=== PATIENT | female | born 1950 | race African-American/Black ===

== ENCOUNTER 2021-09-20 15:48 | Inpatient (IN) | payer OTHER ==
[~2021-09-20] VITALS: Ht 160 cm; Wt 136.1 kg
[2021-09-20] MEDS ORDERED: ASPIRIN 325MG EC TABLET PO ONE (16:30)
[2021-09-20 16:43] LABS: BASOPHILS % 0.8 % (0.0-2.0); HEMATOCRIT. 37.3 % (36.0-48.0); HEMOGLOBIN. 12.1 g/dL (12.0-16.0); LYMPHOCYTES % 37.4 % (20.0-50.0); MEAN CORPUSCULAR HEMOGLOBIN 28.7 pg (28.0-32.0); MEAN CORPUSCULAR VOLUME 88.4 fL (81.0-99.0); MEAN PLATELET VOLUME 7.9 fl (7.4-10.4); MONOCYTES % 7.7 % (2.0-8.0); NEUTROPHILS % 52.1 % (40.0-76.0); PLATELET 387 x1000/uL (130-400); RED BLOOD CELL COUNT 4.21 mill/uL (4.2-5.4); RED CELL DISTRIBUTION WIDTH 19.1 % (11.6-14.6)
[2021-09-20 16:52] LABS: CHLORIDE 107 mEq/L (98-107)
[2021-09-20 17:03] LABS: ETHANOL BLOOD < 10 mg/dL
[2021-09-20] MEDS ORDERED: ASPIRIN 325MG EC TABLET PO NR (17:15)
[2021-09-20] MEDS ORDERED: IOHEXOL-350 100 ML BOTTLE ONE (17:35)
[2021-09-20 18:07] LABS: CLARITY URINE CLEAR (CLEAR); COLOR URINE YELLOW (YELLOW); KETONES URINE TRACE (NEGATIVE); LEUKOCYTE ESTERASE URINE NEGATIVE (NEGATIVE); NITRITE URINE NEGATIVE (NEGATIVE); OCCULT BLOOD URINE 1+ (NEGATIVE); PROTEIN URINE NEGATIVE (NEGATIVE); SPECIFIC GRAVITY URINE 1.034 (1.005-1.030)
[2021-09-20 18:28] LABS: *AMPHETAMINES SCREEN URINE NEGATIVE (NEGATIVE); *BARBITURATES SCREEN URINE NEGATIVE (NEGATIVE); *BENZODIAZEPINES SCREEN URINE NEGATIVE (NEGATIVE); *COCAINE SCREEN URINE NEGATIVE (NEGATIVE); CANNABINOID URINE SCREEN NEGATIVE (NEGATIVE); METHADONE URINE SCREEN NEGATIVE (NEGATIVE); OPIATES URINE SCREEN NEGATIVE (NEGATIVE); PHENCYCLIDINE URINE SCREEN NEGATIVE (NEGATIVE)
[2021-09-20] MEDS ORDERED: LEVETIRACETAM 1000MG PREMIX 100 ML IV ONE (18:30)
[2021-09-20] MEDS ORDERED: MIDAZOLAM HCL 2 MG/2 ML VIAL IV ONE ×2 (18:30)
[2021-09-20] MEDS ORDERED: IPRATROPIUM/ALBUTEROL 0.5-3(2.5)MG/3ML NEB HHN PRN (22:45)
[2021-09-20] MEDS ORDERED: ONDANSETRON HCL 4MG/2ML INJ IV PRN (22:45)
[2021-09-20] MEDS ORDERED: ACETAMINOPHEN 650MG SUPP PR PRN ×2 (22:45)
[2021-09-20] MEDS ORDERED: LEVETIRACETAM 500 MG in SODIUM CHLORIDE 0.9% 100 ML IV SCH (22:45)
[2021-09-20] MEDS ORDERED: DEXT 5%/0.45% NACL KCL 40MEQ/L 1,000 ML IV SCH (23:00)
[2021-09-21] VITALS (41 sets, daily range): BP systolic 102–179; BP diastolic 51–108
[2021-09-21] MEDS: LEVETIRACETAM 500MG PREMIX 100 ML IV SCH ×3 (01:41→22:25)
[2021-09-21] MEDS: HYDRALAZINE 20MG/ML VIAL IV PRN (06:15)
[2021-09-21] MEDS ORDERED: ETOMIDATE 2MG/ML 10ML VIAL IV ONE (08:29)
[2021-09-21] MEDS ORDERED: SODIUM CHLORIDE 0.9% 10ML VIAL ONE (08:29)
[2021-09-21] MEDS ORDERED: VECURONIUM BROMIDE 10 MG/VIAL IV ONE (08:29)
[2021-09-21] MEDS: PANTOPRAZOLE SODIUM 40 MG/VIAL IV SCH (08:41)
[2021-09-21] MEDS ORDERED: LEVETIRACETAM 500MG PREMIX 100 ML IV SCH (09:00)
[2021-09-21 12:56] LABS: BG CARBOXYHEMOGLOBIN 0.7 % (0.5-1.5); BG DEOXYHEMOGLOBIN 3.9 % (0.0-5.0); BG FRACTION INSPIRED OXYGEN 100; BG HCO3 ACT 29.6 mmol/L (22.0-26.0); BG METHEMOGLOBIN 0.5 % (0.0-1.5); BG OXYGEN SATURATION 96.1 % (92.0-98.5); BG OXYHEMOGLOBIN 94.9 % (94.0-97.0); BG PCO2 53.8 mmHg (35.0-45.0); BG PH 7.359 (7.350-7.450); BG PO2 84.3 mmHg (75.0-100.0); BG SAMPLE SITE RIGHT RADIAL; BG TOTAL HEMOGLOBIN 13.3 g/dL (12.0-18.0); BG VENT MODE MASK - NRB
[2021-09-21] MEDS: HYDRALAZINE HCL 100MG TABLET PO SCH ×2 (13:33→21:07)
[2021-09-21] MEDS ORDERED: PROPOFOL 10MG/ML 100ML 100 ML IV PRN (13:45)
[2021-09-21] MEDS: DEXT 5%/0.45% NACL KCL 40MEQ/L 1,000 ML IV SCH (15:39)
[2021-09-21 15:45] LABS: BG BASE EXCESS 3.5 mmol/L (-2.0-2.0); BG DEOXYHEMOGLOBIN 1.2 % (0.0-5.0); BG FRACTION INSPIRED OXYGEN 100; BG HCO3 ACT 29.7 mmol/L (22.0-26.0); BG METHEMOGLOBIN 0.5 % (0.0-1.5); BG OXYGEN SATURATION 98.8 % (92.0-98.5); BG OXYHEMOGLOBIN 98.3 % (94.0-97.0); BG PH 7.375 (7.350-7.450); BG PO2 137.4 mmHg (75.0-100.0); BG SAMPLE SITE RIGHT RADIAL; BG TOTAL HEMOGLOBIN 13.3 g/dL (12.0-18.0); BG VENT MODE VENT - AC
[2021-09-21] MEDS: IPRATROPIUM/ALBUTEROL 0.5-3(2.5)MG/3ML NEB HHN SCH ×2 (16:11→20:49)
[2021-09-21] MEDS: ACETYLCYSTEINE 100MG/ML 10% VIAL 4ML INH SCH (16:11)
[2021-09-22] VITALS (95 sets, daily range): BP systolic 118–188; BP diastolic 49–107
[2021-09-22] MEDS: HYDRALAZINE 20MG/ML VIAL IV PRN (00:57)
[2021-09-22] MEDS: FENTANYL 2500MCG/250ML PMX 250 ML IV PRN ×2 (02:11→23:22)
[2021-09-22] MEDS: ACETYLCYSTEINE 100MG/ML 10% VIAL 4ML INH SCH ×3 (02:25→14:46)
[2021-09-22] MEDS: IPRATROPIUM/ALBUTEROL 0.5-3(2.5)MG/3ML NEB HHN SCH ×4 (02:38→20:35)
[2021-09-22] MEDS: DEXT 5%/0.45% NACL KCL 40MEQ/L 1,000 ML IV SCH ×2 (05:02→17:45)
[2021-09-22] MEDS: HYDRALAZINE HCL 100MG TABLET PO SCH ×3 (05:02→22:12)
[2021-09-22 06:02] LABS: CHLORIDE 106 mEq/L (98-107)
[2021-09-22 06:12] LABS: HEMATOCRIT. 35.5 % (36.0-48.0); HEMOGLOBIN. 11.8 g/dL (12.0-16.0); MEAN CORPUSCULAR HEMOGLOBIN 29.1 pg (28.0-32.0); MEAN CORPUSCULAR VOLUME 87.4 fL (81.0-99.0); RED BLOOD CELL COUNT 4.07 mill/uL (4.2-5.4); RED CELL DISTRIBUTION WIDTH 19.4 % (11.6-14.6)
[2021-09-22] MEDS ORDERED: LIDOCAINE HCL/PF 1% 2ML VIAL ONE (07:55)
[2021-09-22 08:34] LABS: BG BASE EXCESS 5.1 mmol/L (-2.0-2.0); BG CARBOXYHEMOGLOBIN 0.3 % (0.5-1.5); BG DEOXYHEMOGLOBIN 0.4 % (0.0-5.0); BG HCO3 ACT 30.9 mmol/L (22.0-26.0); BG METHEMOGLOBIN 0.7 % (0.0-1.5); BG OXYGEN SATURATION 99.6 % (92.0-98.5); BG OXYHEMOGLOBIN 98.6 % (94.0-97.0); BG PO2 378.8 mmHg (75.0-100.0); BG SAMPLE SITE RIGHT RADIAL; BG TOTAL HEMOGLOBIN 12.1 g/dL (12.0-18.0); BG VENT MODE VENT - AC
[2021-09-22] MEDS: LEVETIRACETAM 500MG PREMIX 100 ML IV SCH ×2 (08:52→20:31)
[2021-09-22] MEDS: PANTOPRAZOLE SODIUM 40 MG/VIAL IV SCH (08:52)
[2021-09-22] MEDS ORDERED: LIDOCAINE HCL 1% 10 MG/ML 10ML VIAL ONE (09:29)
[2021-09-22 11:34] LABS: PLATELET 424 x1000/uL (130-400)
[2021-09-22 11:41] LABS: PLATELET ESTIMATE SLIGHTLY INCREASED
[2021-09-22 18:37] LABS: INR 1.1; PROTHROMBIN TIME 11.4 sec (9.6-11.0)
[2021-09-22] MEDS: LEVOFLOXACIN 500MG PREMIX 100 ML IV SCH (20:30)
[2021-09-22] MEDS: METRONIDAZOLE 500 MG PREMIX 100 ML IV SCH (20:31)
[2021-09-23] VITALS (93 sets, daily range): BP systolic 101–186; BP diastolic 50–98
[2021-09-23] MEDS: IPRATROPIUM/ALBUTEROL 0.5-3(2.5)MG/3ML NEB HHN SCH ×4 (00:30→20:23)
[2021-09-23] MEDS: ACETYLCYSTEINE 100MG/ML 10% VIAL 4ML INH SCH ×3 (00:30→14:51)
[2021-09-23] MEDS: HYDRALAZINE 20MG/ML VIAL IV PRN ×2 (02:32→09:04)
[2021-09-23 04:54] LABS: BASOPHILS % 0.2 % (0.0-2.0); HEMATOCRIT. 32.2 % (36.0-48.0); HEMOGLOBIN. 10.4 g/dL (12.0-16.0); LYMPHOCYTES % 10.5 % (20.0-50.0); MEAN CORPUSCULAR HEMOGLOBIN 28.4 pg (28.0-32.0); MEAN CORPUSCULAR VOLUME 88.1 fL (81.0-99.0); MEAN PLATELET VOLUME 8.1 fl (7.4-10.4); MONOCYTES % 10.5 % (2.0-8.0); NEUTROPHILS % 78.8 % (40.0-76.0); PLATELET 384 x1000/uL (130-400); RED BLOOD CELL COUNT 3.66 mill/uL (4.2-5.4); RED CELL DISTRIBUTION WIDTH 19.6 % (11.6-14.6)
[2021-09-23] MEDS: HYDRALAZINE HCL 100MG TABLET PO SCH ×3 (05:04→22:00)
[2021-09-23] MEDS: METRONIDAZOLE 500 MG PREMIX 100 ML IV SCH ×3 (05:04→21:55)
[2021-09-23 05:08] LABS: CHLORIDE 107 mEq/L (98-107)
[2021-09-23] MEDS: DEXT 5%/0.45% NACL 1000ML 1,000 ML IV SCH ×2 (08:17→20:20)
[2021-09-23] MEDS: PANTOPRAZOLE SODIUM 40 MG/VIAL IV SCH (08:17)
[2021-09-23] MEDS: LEVETIRACETAM 500MG PREMIX 100 ML IV SCH ×2 (08:17→20:19)
[2021-09-23 08:45] LABS: BG CARBOXYHEMOGLOBIN 0.3 % (0.5-1.5); BG DEOXYHEMOGLOBIN 5.8 % (0.0-5.0); BG FRACTION INSPIRED OXYGEN 40; BG HCO3 ACT 26.2 mmol/L (22.0-26.0); BG METHEMOGLOBIN 0.3 % (0.0-1.5); BG OXYGEN SATURATION 94.2 % (92.0-98.5); BG OXYHEMOGLOBIN 93.6 % (94.0-97.0); BG PCO2 49.1 mmHg (35.0-45.0); BG PH 7.345 (7.350-7.450); BG PO2 73.7 mmHg (75.0-100.0); BG SAMPLE SITE RIGHT RADIAL; BG TOTAL HEMOGLOBIN 11.7 g/dL (12.0-18.0); BG VENT MODE VENT - AC
[2021-09-23] MEDS ORDERED: LEVETIRACETAM 500MG PREMIX 100 ML IV SCH (09:00)
[2021-09-23] MEDS: DOCUSATE SODIUM SUGAR FREE 100MG/10ML UDC NG SCH (14:12)
[2021-09-23] MEDS ORDERED: SODIUM POLYSTYRENE SULFONATE 15 G/60 ML BOT PO NR (17:15)
[2021-09-23] MEDS: LEVOFLOXACIN 500MG PREMIX 100 ML IV SCH (20:19)
[2021-09-24] VITALS (96 sets, daily range): BP systolic 94–169; BP diastolic 39–89
[2021-09-24] MEDS: IPRATROPIUM/ALBUTEROL 0.5-3(2.5)MG/3ML NEB HHN SCH ×5 (02:12→20:37)
[2021-09-24] MEDS: ACETYLCYSTEINE 100MG/ML 10% VIAL 4ML INH SCH ×3 (02:13→14:23)
[2021-09-24] MEDS: HYDRALAZINE HCL 100MG TABLET PO SCH ×3 (05:02→22:47)
[2021-09-24] MEDS: METRONIDAZOLE 500 MG PREMIX 100 ML IV SCH ×3 (05:02→22:03)
[2021-09-24 05:11] LABS: HEMATOCRIT 28.7 % (36.0-48.0); HEMOGLOBIN 9.2 g/dL (12.0-16.0); MEAN CORPUSCULAR HEMOGLOBIN 28.4 pg (28.0-32.0); PLATELET 311 x1000/uL (130-400); RED BLOOD CELL COUNT 3.26 mill/uL (4.2-5.4)
[2021-09-24 05:23] LABS: CHLORIDE 106 mEq/L (98-107)
[2021-09-24 07:55] LABS: BG BASE EXCESS -2.1 mmol/L (-2.0-2.0); BG CARBOXYHEMOGLOBIN 0.3 % (0.5-1.5); BG HCO3 ACT 22.3 mmol/L (22.0-26.0); BG METHEMOGLOBIN 0.6 % (0.0-1.5); BG OXYHEMOGLOBIN 97.1 % (94.0-97.0); BG PCO2 36.8 mmHg (35.0-45.0); BG PH 7.401 (7.350-7.450); BG PO2 116.8 mmHg (75.0-100.0); BG SAMPLE SITE RIGHT RADIAL; BG TOTAL HEMOGLOBIN 10.2 g/dL (12.0-18.0); BG VENT MODE VENT - AC
[2021-09-24] MEDS: PANTOPRAZOLE SODIUM 40 MG/VIAL IV SCH (08:16)
[2021-09-24] MEDS: LEVETIRACETAM 500MG PREMIX 100 ML IV SCH (08:17)
[2021-09-24] MEDS: DOCUSATE SODIUM SUGAR FREE 100MG/10ML UDC NG SCH (08:17)
[2021-09-24] MEDS: DEXT 5%/0.45% NACL 1000ML 1,000 ML IV SCH (08:48)
[2021-09-24] MEDS: FENTANYL 2500MCG/250ML PMX 250 ML IV PRN (08:49)
[2021-09-24] MEDS ORDERED: LEVETIRACETAM 500MG PREMIX 100 ML IV NR (15:00)
[2021-09-24] MEDS: LEVOFLOXACIN 500MG PREMIX 100 ML IV SCH (20:14)
[2021-09-24] MEDS ORDERED: LEVETIRACETAM 500MG PREMIX 100 ML IV SCH (21:00)
[2021-09-24] MEDS: LEVETIRACETAM 1000MG PREMIX 100 ML IV SCH (21:29)
[2021-09-24] MEDS ORDERED: PHENYTOIN SODIUM 1,000 MG in SODIUM CHLORIDE 0.9% 100 ML IV NR (23:00)
[2021-09-25] VITALS (95 sets, daily range): BP systolic 93–149; BP diastolic 39–69
[2021-09-25] MEDS: ACETYLCYSTEINE 100MG/ML 10% VIAL 4ML INH SCH ×3 (02:09→13:51)
[2021-09-25] MEDS: IPRATROPIUM/ALBUTEROL 0.5-3(2.5)MG/3ML NEB HHN SCH ×4 (02:09→20:17)
[2021-09-25] MEDS: FENTANYL 2500MCG/250ML PMX 250 ML IV PRN (04:13)
[2021-09-25] MEDS: METRONIDAZOLE 500 MG PREMIX 100 ML IV SCH ×3 (05:25→22:20)
[2021-09-25] MEDS: HYDRALAZINE HCL 100MG TABLET PO SCH ×3 (05:26→22:21)
[2021-09-25 08:05] LABS: BG BASE EXCESS -0.7 mmol/L (-2.0-2.0); BG CARBOXYHEMOGLOBIN 0.3 % (0.5-1.5); BG DEOXYHEMOGLOBIN 1.1 % (0.0-5.0); BG HCO3 ACT 24.3 mmol/L (22.0-26.0); BG METHEMOGLOBIN 0.4 % (0.0-1.5); BG OXYGEN SATURATION 98.9 % (92.0-98.5); BG OXYHEMOGLOBIN 98.2 % (94.0-97.0); BG PCO2 41.3 mmHg (35.0-45.0); BG PH 7.387 (7.350-7.450); BG PO2 161.7 mmHg (75.0-100.0); BG SAMPLE SITE RIGHT RADIAL; BG TOTAL HEMOGLOBIN 10.2 g/dL (12.0-18.0); BG VENT MODE VENT - AC
[2021-09-25] MEDS: DOCUSATE SODIUM SUGAR FREE 100MG/10ML UDC NG SCH (08:27)
[2021-09-25] MEDS: LEVETIRACETAM 1000MG PREMIX 100 ML IV SCH ×2 (08:27→20:21)
[2021-09-25] MEDS: PANTOPRAZOLE SODIUM 40 MG/VIAL IV SCH (08:27)
[2021-09-25] MEDS ORDERED: PHENYTOIN SODIUM 500 MG in SODIUM CHLORIDE 0.9% 50 ML IV SCH (09:00)
[2021-09-25] MEDS: SODIUM CHLORIDE 0.9% IV SCH (09:16)
[2021-09-25] MEDS: PHENYTOIN SODIUM IV SCH (09:16)
[2021-09-25] MEDS: DEXT 5%/0.45% NACL 1000ML 1,000 ML IV SCH ×2 (14:56)
[2021-09-25] MEDS: LEVOFLOXACIN 500MG PREMIX 100 ML IV SCH (20:22)
[2021-09-25] MEDS ORDERED: LACTULOSE 20G/30ML UDC PO PRN (21:00)
[2021-09-25] MEDS ORDERED: PHENYTOIN SODIUM 100MG/2ML VIAL IV NR (22:00)
[2021-09-26] VITALS (93 sets, daily range): BP systolic 85–169; BP diastolic 37–113
[2021-09-26] MEDS: FENTANYL 2500MCG/250ML PMX 250 ML IV PRN (01:07)
[2021-09-26] MEDS: IPRATROPIUM/ALBUTEROL 0.5-3(2.5)MG/3ML NEB HHN SCH ×4 (01:45→21:06)
[2021-09-26] MEDS: ACETYLCYSTEINE 100MG/ML 10% VIAL 4ML INH SCH ×3 (01:45→14:51)
[2021-09-26] MEDS: MIDAZOLAM HCL 2 MG/2 ML VIAL IV PRN ×2 (01:53→10:00)
[2021-09-26] MEDS: METRONIDAZOLE 500 MG PREMIX 100 ML IV SCH ×3 (05:22→21:16)
[2021-09-26] MEDS: HYDRALAZINE HCL 100MG TABLET PO SCH ×3 (05:22→21:16)
[2021-09-26 05:24] LABS: CHLORIDE 108 mEq/L (98-107)
[2021-09-26] MEDS: DEXT 5%/0.45% NACL 1000ML 1,000 ML IV SCH ×2 (07:00→21:17)
[2021-09-26] MEDS: LEVETIRACETAM 1,500 MG in SODIUM CHLORIDE 0.9% 100 ML IV SCH ×2 (08:51→22:49)
[2021-09-26 09:17] LABS: BG BASE EXCESS -3.4 mmol/L (-2.0-2.0); BG CARBOXYHEMOGLOBIN 0.3 % (0.5-1.5); BG DEOXYHEMOGLOBIN 1.4 % (0.0-5.0); BG FRACTION INSPIRED OXYGEN 35; BG HCO3 ACT 21.6 mmol/L (22.0-26.0); BG METHEMOGLOBIN 0.3 % (0.0-1.5); BG OXYGEN SATURATION 98.6 % (92.0-98.5); BG PCO2 38.6 mmHg (35.0-45.0); BG PH 7.366 (7.350-7.450); BG PO2 143.3 mmHg (75.0-100.0); BG SAMPLE SITE RIGHT RADIAL; BG TOTAL HEMOGLOBIN 10.1 g/dL (12.0-18.0); BG VENT MODE VENT - AC
[2021-09-26] MEDS: SODIUM CHLORIDE 0.9% IV SCH (09:57)
[2021-09-26] MEDS: PHENYTOIN SODIUM IV SCH (09:57)
[2021-09-26] MEDS: DOCUSATE SODIUM SUGAR FREE 100MG/10ML UDC NG SCH (09:59)
[2021-09-26] MEDS: PROPOFOL 10MG/ML 100ML 100 ML IV PRN ×3 (09:59→23:42)
[2021-09-26] MEDS: PANTOPRAZOLE SODIUM 40 MG/VIAL IV SCH (09:59)
[2021-09-26] MEDS ORDERED: MAGNESIUM 4 G PREMIX 100 ML IV SCH (12:00)
[2021-09-26] MEDS ORDERED: PHENYTOIN SODIUM 500 MG in SODIUM CHLORIDE 0.9% 50 ML IV SCH (12:00)
[2021-09-26] MEDS: LEVOFLOXACIN 500MG PREMIX 100 ML IV SCH (21:16)
[2021-09-27] VITALS (82 sets, daily range): BP systolic 91–167; BP diastolic 41–80
[2021-09-27] MEDS: IPRATROPIUM/ALBUTEROL 0.5-3(2.5)MG/3ML NEB HHN SCH ×4 (02:18→20:16)
[2021-09-27] MEDS: HYDRALAZINE HCL 100MG TABLET PO SCH ×3 (05:32→21:15)
[2021-09-27] MEDS: METRONIDAZOLE 500 MG PREMIX 100 ML IV SCH ×2 (05:32→14:22)
[2021-09-27] MEDS: DEXT 5%/0.45% NACL 1000ML 1,000 ML IV SCH ×2 (05:33→21:16)
[2021-09-27 05:50] LABS: BASOPHILS % 0.5 % (0.0-2.0); EOSINOPHILS % 5.5 % (0.0-5.0); HEMATOCRIT. 27.5 % (36.0-48.0); HEMOGLOBIN. 9.1 g/dL (12.0-16.0); LYMPHOCYTES % 21.1 % (20.0-50.0); MEAN CORPUSCULAR HEMOGLOBIN 28.9 pg (28.0-32.0); MEAN CORPUSCULAR VOLUME 87.9 fL (81.0-99.0); MEAN PLATELET VOLUME 7.9 fl (7.4-10.4); MONOCYTES % 12.7 % (2.0-8.0); NEUTROPHILS % 60.2 % (40.0-76.0); PLATELET 331 x1000/uL (130-400); RED BLOOD CELL COUNT 3.13 mill/uL (4.2-5.4); RED CELL DISTRIBUTION WIDTH 19.3 % (11.6-14.6)
[2021-09-27 07:08] LABS: CHLORIDE 112 mEq/L (98-107)
[2021-09-27 07:44] LABS: BG BASE EXCESS 0.1 mmol/L (-2.0-2.0); BG CARBOXYHEMOGLOBIN 0.3 % (0.5-1.5); BG DEOXYHEMOGLOBIN 2.9 % (0.0-5.0); BG HCO3 ACT 25.1 mmol/L (22.0-26.0); BG METHEMOGLOBIN 0.4 % (0.0-1.5); BG OXYGEN SATURATION 97.1 % (92.0-98.5); BG OXYHEMOGLOBIN 96.4 % (94.0-97.0); BG PCO2 42.3 mmHg (35.0-45.0); BG PH 7.392 (7.350-7.450); BG PO2 97.5 mmHg (75.0-100.0); BG SAMPLE SITE RIGHT RADIAL; BG VENT MODE VENT - AC
[2021-09-27] MEDS: PROPOFOL 10MG/ML 100ML 100 ML IV PRN (07:45)
[2021-09-27] MEDS: DOCUSATE SODIUM SUGAR FREE 100MG/10ML UDC NG SCH (09:06)
[2021-09-27] MEDS: PHENYTOIN SODIUM IV SCH (09:06)
[2021-09-27] MEDS: LEVETIRACETAM 1,500 MG in SODIUM CHLORIDE 0.9% 100 ML IV SCH ×2 (09:06→21:15)
[2021-09-27] MEDS: SODIUM CHLORIDE 0.9% IV SCH (09:06)
[2021-09-27] MEDS: PANTOPRAZOLE SODIUM 40 MG/VIAL IV SCH (09:06)
[2021-09-28] VITALS (41 sets, daily range): BP systolic 117–184; BP diastolic 47–95
[2021-09-28] MEDS: IPRATROPIUM/ALBUTEROL 0.5-3(2.5)MG/3ML NEB HHN SCH ×4 (00:18→20:33)
[2021-09-28] MEDS: HYDRALAZINE HCL 100MG TABLET PO SCH ×3 (06:34→21:58)
[2021-09-28] MEDS: DOCUSATE SODIUM SUGAR FREE 100MG/10ML UDC NG SCH (09:16)
[2021-09-28] MEDS: PANTOPRAZOLE SODIUM 40 MG/VIAL IV SCH (09:16)
[2021-09-28] MEDS: PHENYTOIN SODIUM IV SCH (09:17)
[2021-09-28] MEDS: SODIUM CHLORIDE 0.9% IV SCH (09:17)
[2021-09-28] MEDS: LEVETIRACETAM 1,500 MG in SODIUM CHLORIDE 0.9% 100 ML IV SCH ×2 (10:00→21:22)
[2021-09-28] MEDS: DEXT 5%/0.45% NACL 1000ML 1,000 ML IV SCH (16:47)
== END 2021-09-28 22:30 | disposition short-term general hospital (02) | DRG 870 ==
LOC: ER 15:48 → CANBEDREQ 17:10 → MICUSO 23:38 → 5EST 09-21 03:56 → MICUSO 09-21 14:30
PROVIDERS: ADMIT Internal Medicine; ATTEND Internal Medicine
PROC: 5A1955Z Respiratory Ventilation, Greater than 96 Consecutive Hours (ICD-10-PCS; principal; 2021-09-21)
PROC: 0BH17EZ Insertion of Endotracheal Airway into Trachea, Via Natural or Artificial Opening (ICD-10-PCS; 2021-09-21)
PROC: 02HV33Z Insertion of Infusion Device into Superior Vena Cava, Percutaneous Approach (ICD-10-PCS; 2021-09-22)
PROC: B548ZZA Ultrasonography of Superior Vena Cava, Guidance (ICD-10-PCS; 2021-09-22)
PROC: 4A10X4Z Monitoring of Central Nervous Electrical Activity, External Approach (ICD-10-PCS; 2021-09-23)
PROC: 4A10X4Z Monitoring of Central Nervous Electrical Activity, External Approach (ICD-10-PCS; 2021-09-26)
DX: A41.9 Sepsis, unspecified organism (principal); E43 Unspecified severe protein-calorie malnutrition; G93.41 Metabolic encephalopathy; J69.0 Pneumonitis due to inhalation of food and vomit; J96.01 Acute respiratory failure with hypoxia; J98.59 Other diseases of mediastinum, not elsewhere classified; I50.32 Chronic diastolic (congestive) heart failure; J44.0 Chronic obstructive pulmonary disease with (acute) lower respiratory infection; Z68.43 Body mass index [BMI] 50.0-59.9, adult; E66.01 Morbid (severe) obesity due to excess calories; E78.5 Hyperlipidemia, unspecified; I11.0 Hypertensive heart disease with heart failure; Z20.822 Contact with and (suspected) exposure to COVID-19; M24.541 Contracture, right hand; G40.909 Epilepsy, unspecified, not intractable, without status epilepticus; E87.6 Hypokalemia; Z86.73 Personal history of transient ischemic attack (TIA), and cerebral infarction without residual deficits; Z86.79 Personal history of other diseases of the circulatory system; Z98.2 Presence of cerebrospinal fluid drainage device; Z88.0 Allergy status to penicillin
CPT/HCPCS: 31500; 36415; 36573; 36600; 70496; 70498; 70551; 71045; 71250; 80048; 80053; 80185; 80305; 80320; 81003; 82375; 82805; 82962; 83735; 84443; 84478; 84484; 85025; 85027; 87070; 87426; 92610; 93005; 93970; 94002; 94003; 94640; 95816; 99291; C1725; C9113; J0360; J1165; J1953; J1956; J2250; J2704; J3010; J3475; J3490; J7050; J7608; Q9967; A4315; G0480